=== PATIENT | female | born 1990 | race Caucasian/White ===

== ENCOUNTER 2019-06-24 08:40 | Emergency (ER) | payer BC ==
--- NOTE | 2019-06-24 09:06 | EDM.PDOC ---
ED HPI GENERAL MEDICAL PROBLEM - General Chief Complaint: Upper Extremity Injury/Pain Stated Complaint: LEFT ELBOW PAIN Time Seen by Provider: 06/24/19 08:47 Source of Information: Reports: Patient History Limitations: Reports: No Limitations - History of Present Illness INITIAL COMMENTS - FREE TEXT/NARRATIVE: HISTORY AND PHYSICAL: History of present illness: 29-year-old female presents today to the ER complaining of left elbow pain. She reports the pain started insidiously approximately 1 week ago and is described as being constant and achy in nature. She also reports that when she moves her elbow and certain movements. She feels numbness and tingling extending to her left fourth and fifth digits. She reports that it has been getting worse over the past week and has noticed that it swells up at times. Patient reports that her hand was looking like it was turning purple this morning, however, that has since resolved. She has tried taking over the counter ibuprofen and ice, however , says it did not help much. She denies any recent history of injury that she can recall. Patient denies having any fevers. Review of systems: As per history of present illness and below otherwise all systems reviewed and negative. Past medical history: As per history of present illness and as reviewed below otherwise noncontributory. Surgical history: As per history of present illness and as reviewed below otherwise noncontributory. Social history: No reported history of drug or alcohol abuse. Family history: As per history of present illness and as reviewed below otherwise noncontributory. Physical exam: HEENT: Atraumatic, normocephalic, mucous membranes moist, neck supple, nontender , trachea midline. Neck: full ROM, non-tender to palpation. Lungs: Clear to auscultation. Heart: S1S2, regular. Abdomen: Soft, nondistended, nontender. normal bowel sounds. Pelvis: Deferred. Genitourinary: Deferred. Rectal: Deferred. Extremities: Left elbow: - no obvious deformity, edema or erythema appreciated on inspection. 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 Cranial nerves II through XII unremarkable.Exam nonfocal. Diagnostics: Left elbow x-ray - negative for any acute fracture or pathology Impression: 1. Left elbow pain. Plan: 1. Recommended OTC ibuprofen/Aleve for pain. Recommended rest, ice and compression. Sling applied while in the ER. Instructed patient to follow-up with her primary care provider within 1 week. Definitive disposition and diagnosis as appropriate pending reevaluation and review of above. L elbow Pain Score (Numeric/FACES): 4 - Related Data Allergies Allergy/AdvReac Type Severity Reaction Status Date / Time No Known Allergies Allergy Verified 06/24/19 08:49 Home Meds: Home Meds . [No Known Home Meds] 06/24/19 [History] Past Medical History - Infectious Disease History Infectious Disease History: Reports: Chicken Pox - Past Surgical History HEENT Surgical History: Reports: Tonsillectomy Social & Family History - Tobacco Use Smoking Status *Q: Never Smoker - Recreational Drug Use Recreational Drug Use: No Review of Systems - Review of Systems Review Of Systems: ROS reveals no pertinent complaints other than HPI. ED EXAM, GENERAL - Physical Exam Exam: See Below Course - Vital Signs Last Recorded V/S: Last Vital Signs Temp 97.2 F 06/24/19 08:46 Pulse 81 06/24/19 08:46 Resp 18 06/24/19 08:46 BP 128/79 06/24/19 08:46 Pulse Ox 97 06/24/19 08:46 Departure - Departure Time of Disposition: 09:57 Disposition: Home, Self-Care 01 Condition: Fair Clinical Impression: Left elbow pain - Discharge Information *PRESCRIPTION DRUG MONITORING PROGRAM REVIEWED*: Not Applicable *COPY OF PRESCRIPTION DRUG MONITORING REPORT IN PATIENT LEA: Not Applicable Instructions: How to Use a Sling, [id number] Forms: ED Department Discharge Additional Instructions: The following information is given to patients seen in the emergency department who are being discharged to home. This information is to outline your options for follow-up care. We provide all patients seen in our emergency department with a follow-up referral. The need for follow-up, as well as the timing and circumstances, are variable depending upon the specifics of your emergency department visit. If you don't have a primary care physician on staff, we will provide you with a referral. We always advise you to contact your personal physician following an emergency department visit to inform them of the circumstance of the visit and for follow-up with them and/or the need for any referrals to a consulting specialist. The emergency department will also refer you to a specialist when appropriate. This referral assures that you have the opportunity for follow-up care with a specialist. All of these measure are taken in an effort to provide you with optimal care, which includes your follow-up. Under all circumstances we always encourage you to contact your private physician who remains a resource for coordinating your care. When calling for follow-up care, please make the office aware that this follow-up is from your recent emergency room visit. If for any reason you are refused follow-up, please contact the [facility] Emergency Department at and asked to speak to the emergency department charge nurse.
--- NOTE | 2019-06-24 09:29 | CR ---
INDICATION: PT w/lt elbow pain. INDICATION: Elbow pain. TECHNIQUE: Left elbow, three views. COMPARISON: None FINDINGS: Bones: Alignment is normal. No fractures or bone lesions. Joint spaces: Unremarkable. Soft tissues: Unremarkable. IMPRESSION: There is no fracture/malalignment identified. Dictated by Jian Cheung MD @ 06/24/2019 9:28:45 AM Dictated by: Jian Cheung MD @ 06/24/2019 09:28:52 (Electronically Signed)
== END 2019-06-24 10:08 | disposition home or self-care (01) ==
LOC: MW.ED 08:40
DX: M25.522 Pain in left elbow (principal)
CPT/HCPCS: 73080-26-LT; 73080-LT; 99283-25